=== PATIENT | female | born 1980 | race Two or more races ===

== ENCOUNTER → 2018-04-17 | Outpatient (REF) | payer OTHER ==
[2018-04-17 15:10] LABS: ERYTHROCYTE SEDIMENTATION RATE 10 mm/hr (0-20)
[2018-04-17 16:31] LABS: FREE T4 2.12 NG/DL (0.76-1.46); RHEUMATOID FACTOR QUANT < 10.0 IU/ML (<15.0); TOTAL PROTEIN 7.2 GM/DL (6.4-8.2)
[2018-04-17 17:08] LABS: FOLATE 12.5 NG/ML (>5.4)
[2018-04-18 15:03] LABS: ANTINUCLEAR ANTIBODIES DIRECT Negative (Negative)
[2018-04-19 12:01] LABS: ALBUMIN 3.93 GM/DL (3.29-5.55); ALBUMIN % 54.6 % (55.8-66.1); ALPHA-1-GLOBULIN % 4.7 % (2.9-4.9); ALPHA-1-GLOBULINS 0.34 GM/DL (0.17-0.41); ALPHA-2-GLOBULINS 0.75 GM/DL (0.42-0.99); ALPHA-2-GLOBULINS % 10.4 % (7.1-11.8); BETA-1-GLOBULINS 0.49 GM/DL (0.28-0.60); BETA-1-GLOBULINS % 6.8 % (4.7-7.2); BETA-2-GLOBULINS 0.43 GM/DL (0.19-0.55); GAMMA GLOBULIN % 17.5 % (11.1-18.8); GAMMA GLOBULINS 1.26 GM/DL (0.65-1.58)
[2018-04-24 10:27] LABS: DRVV SCREEN 38.4 SEC
[2018-04-24 11:00] LABS: PTT LUPUS TYPE ANTICOAG SCREEN 0.9 (0-1.2)
== END ==
LOC: M LABNEURO 14:16
DX: M54.2 Cervicalgia (principal); G43.909 Migraine, unspecified, not intractable, without status migrainosus

== ENCOUNTER → 2019-09-18 | Outpatient (REF) | payer OTHER ==
[2019-09-18 21:12] LABS: CHLAMYDIA DNA AMPLIFICATION NEGATIVE (NEGATIVE); GC DNA AMPLIFICATION NEGATIVE (NEGATIVE)
== END ==
LOC: M SFHCLERA 09:41
PROVIDERS: ATTEND Nurse Practitioner Family
DX: R30.0 Dysuria (principal)
CPT/HCPCS: 81002; 81025; 87661; G0463

== ENCOUNTER 2020-05-25 19:41 | Inpatient (IN) | payer OTHER ==
[~2020-05-25] VITALS: Ht 154.9 cm; Wt 73.0 kg
[2020-05-25 20:30] VITALS: BP 122/82
[2020-05-25] MEDS ORDERED: MAALOX 30 ML SUSP *UDC PO PRN (20:45)
[2020-05-25] MEDS ORDERED: ACETAMINOPHEN TAB 650MG DOSE (2X325MG) PO PRN (20:45)
[2020-05-25] MEDS ORDERED: MOM 30ML SUSPENSION UDC PO PRN (20:45)
[2020-05-25] MEDS ORDERED: NS 1,000 ML IV SCH (20:45)
[2020-05-25] MEDS ORDERED: PROP120C PO (21:25)
[2020-05-25 21:27] LABS: HEMOGLOBIN 13.8 g/dl (12.0-15.5); MEAN CORPUSCULAR HEMOGLOBIN 27.8 pg (27.0-33.0); MEAN CORPUSCULAR HGB CONC 30.7 g/dl (32.0-36.5); MEAN CORPUSCULAR VOLUME 90.5 fl (80.0-96.0); PLATELET COUNT, AUTOMATED 366 10^3/uL (150-450); RED BLOOD COUNT 4.97 10^6/uL (4.00-5.40); WHITE BLOOD COUNT 10.3 10^3/uL (4.0-10.0)
[2020-05-25 21:41] LABS: INR 0.99; PROTHROMBIN TIME 13.3 SECONDS (12.5-14.3)
[2020-05-25 21:42] LABS: PARTIAL THROMBOPLASTIN TIME 25.1 SECONDS (24.2-38.5)
[2020-05-25 22:02] LABS: ALBUMIN 3.5 GM/DL (3.2-5.2); ALT/SGPT 23 U/L (12-78); BILIRUBIN,TOTAL 0.4 MG/DL (0.2-1.0); BLOOD UREA NITROGEN 9 MG/DL (7-18); CALCIUM LEVEL 9.4 MG/DL (8.5-10.1); CARBON DIOXIDE LEVEL 27 MEQ/L (21-32); CHLORIDE LEVEL 107 MEQ/L (98-107); CREATININE FOR GFR 0.78 MG/DL (0.55-1.30); GLOMERULAR FILTRATION RATE > 60.0 (>58); GLUCOSE, FASTING 95 MG/DL (70-100); POTASSIUM SERUM 4.3 MEQ/L (3.5-5.1); SODIUM LEVEL 140 MEQ/L (136-145); TOTAL PROTEIN 7.4 GM/DL (6.4-8.2)
--- NOTE | 2020-05-25 23:27 | HPEPDOC ---
[facility] Medical History & Physical Date of Admission May 26, 2020 Date of Service: May 26, 2020 Primary Care Physician: TERRI LEBRON Attending Physician: JOANNE NOBLE MD History and Physical TIME OF SERVICE: 11:20 PM CHIEF COMPLAINT: Abdominal pain HISTORY OF PRESENT ILLNESS: This 40-year-old female developed sharp, sudden onset right lower quadrant abdominal pain on Monday. On Monday she went to see her primary care provider who palpated a mass in her abdomen and instructed her to go to the hospital. The patient denied losing weight. Denied having fevers, chills, or any other acute complaints except for mild nausea. She was unaware of this mass in her abdomen prior to her primary care provider pointing it out. At [facility]. She had an extensive workup including CBC, CMP, UA and CT of the abdomen and pelvis. Of note, her hemoglobin was 14, lipase was within normal limits, lactic acid was 2.5, Beta hCG was negative and the UA was positive for blood. CT scan of the abdomen showed a large pelvic mass that was 14.6 x 9 cm that may be a fibroid; the mass was obstructing the ureter and causing right-sided hydronephrosis. Dr. Rondon discussed these findings with Dr. Moody and Dr. Mon prior to the patient's transfer; they agreed to see the patient during her admission here. REVIEW OF SYSTEMS: 12 point review of systems negative except as listed in HPI PAST MEDICAL/ SURGICAL HISTORY: Asthma Migraines 5 para 3 SOCIAL HISTORY: She doesn't smoke, drink or use recreational drugs. Her is in the FAMILY HISTORY: Hypertension Breast cancer Dyslipidemia ALLERGIES: Please see below. HOME MEDICATIONS: Please see below. PHYSICAL EXAMINATION: VITAL SIGNS: Please see below. GEN: well-nourished / well developed/ NAD INTEGUMENT: not flushed/ not jaundice HEENT: lips acyanotic /mucus membranes moist and pink CVS: RRR/NMRG/ radial pulses intact / no lower extremity edema LUNGS: able to speak full sentences without stopping to take a breath / no coughing / lungs are clear to auscultation bilaterally on room air ABDOMEN: Contour (obese) / soft & very tender with light palpation of the right LQ MSK/EXTREMITIES: NCAT / range of motion intact in all 4 extremities / no scoliosis / no kyphosis NEURO: CN 2-12 are grossly intact / speech is not dysarthric PSYCH: alert and oriented to person place and time/ able to understand and follow all commands LABORATORY DATA: See below. IMAGING: see HPI MICROBIOLOGY: Please see below. ASSESSMENT: Ms. Bishop is a 40-year-old with a history of asthma and migraines who presented with complaints of right lower quadrant abdominal pain and was found to have a p alpable mass by her primary care provider who referred her to [place]; she was transferred here for urological and gynecological evaluation. PLAN: 1. Pelvic mass cause to be determined. Plan: Admit to medical floor/nothing by mouth with IV fluids/will call Dr. Moody and Dr. Mon in the morning 2. Possible UTI Plan: start Levofloxacin bc she will likely undergo instrumentation / f/u UCx 3. Asthma Plan: Albuterol when necessary 4. Migraines. Plan: Propranolol, and Tylenol DVT PROPHYLAXIS: SCDs Laboratory Data Labs 24H Laboratory Tests 2 05/25/20 20:44: Nucleated Red Blood Cells % (auto) 0.0, Prothrombin Time 13.3, Prothromb Time In ternational Ratio 0.99, Activated Partial Thromboplast Time 25.1 05/25/20 21:13: Anion Gap 6L, Glomerular Filtration Rate > 60.0, Calcium Level 9.4, Total Bilirubin 0.4, Aspartate Amino Transf (AST/SGOT) 17, Alanine Aminotransferase (ALT/SGPT) 23, Alkaline Phosphatase 104, Total Protein 7.4, Albumin 3.5, Albumin/Globulin Ratio 0.9L 05/25/20 21:35: Methicillin-Resist S.aureus DNA PCR NOT DETECTED CBC/BMP Laboratory Tests 05/25/20 20:44 05/25/20 21:13 Microbiology Microbiology 05/25/20 Respiratory Virus Panel (PCR) ([facility]) - Final, Complete Home Medications Scheduled Propranolol HCl (Propranolol HCl ER) 120 Mg Cap.sa.24h, 120 MG PO DAILY Allergies Coded Allergies: aspirin (Verified Allergy, Unknown, 05/25/20) PATIENT STATES SHE CAN TAKE OTHER NSAIDS. A-FIB/CHADSVASC A-FIB History Current/History of A-Fib/PAF?: No Current PO Anticoag Therapy: No JOANNE NOBLE MD May 25, 2020 23:27
[2020-05-26] MEDS ORDERED: LevoFLOXacin IV 750 MG in IV 1 EA IV SCH (05:00)
[2020-05-26 06:00] VITALS: BP 115/73
[2020-05-26 06:18] LABS: HEMATOCRIT 43.1 % (36.0-47.0); HEMOGLOBIN 13.2 g/dl (12.0-15.5); MEAN CORPUSCULAR HEMOGLOBIN 28.3 pg (27.0-33.0); MEAN CORPUSCULAR HGB CONC 30.6 g/dl (32.0-36.5); MEAN CORPUSCULAR VOLUME 92.5 fl (80.0-96.0); PLATELET COUNT, AUTOMATED 308 10^3/uL (150-450); RED BLOOD COUNT 4.66 10^6/uL (4.00-5.40); WHITE BLOOD COUNT 9.9 10^3/uL (4.0-10.0)
[2020-05-26 06:34] LABS: BLOOD UREA NITROGEN 11 MG/DL (7-18); CALCIUM LEVEL 8.7 MG/DL (8.5-10.1); CARBON DIOXIDE LEVEL 27 MEQ/L (21-32); CHLORIDE LEVEL 107 MEQ/L (98-107); CREATININE FOR GFR 0.73 MG/DL (0.55-1.30); GLOMERULAR FILTRATION RATE > 60.0 (>58); GLUCOSE, FASTING 82 MG/DL (70-100); POTASSIUM SERUM 4.1 MEQ/L (3.5-5.1); SODIUM LEVEL 141 MEQ/L (136-145)
[2020-05-26 08:32] LABS: LDH LACTATE DEHYDROGENASE 145 U/L (84-246)
--- NOTE | 2020-05-26 10:06 | IPNPDOC ---
Text Note Date of Service The patient was seen on 05/26/20. NOTE MANAGER SIMULATION Consultation Contacted by the Hospitalist service regarding Ms. Bishop. She presented to the [place] [facility] after being sent by her PCM who discovered a large abdominal/pelvic mass on exam. CT imaging in the [place] [facility] revealed a large pelvic mass of uncertain etiology. This appeared to cause a mass effect on her right ureter potentially leading to a degree of hydronephrosis. The decision was made to transfer Ms. Bishop to [facility] and directly admit her under the care of the hospitalist service with MANAGER SIMULATION and urology consulting. I went to evaluate Ms. Bishop this morning. Ms. Bishop is a 40 yo female who has been directly admitted to [facility] for workup of a large pelvic mass. She reports she was in her usual state of health until Monday when she developed RLQ abdominal pain that was significant. She went to her PCM on Monday to be evaluated. Her PCM palpated a large mass in her lower abdomen and was concerned about distention. Ms. Bishop was then sent to the [place] [facility]. Though Ms. Bishop has had pain since Monday, she denies any vomiting fevers/chills, SOB, chest pain, dysuria, or constipation. She has been tolerating a regular diet and voiding and stooling appropriately. OBHX: . 4 SVDs. One at 23 weeks (child ), two at 31 weeks, and one at 36 weeks. One SAB at 7 weeks. GYNHX: Regular, Q26-28 day menstrual cycles lasting ~7 days. No STD or abnormal pap history. Using 's vasectomy for contraception. PMHX: Asthma, Migraines, obesity PSHX: Denies Meds: Propanolol, PRN albuterol inhaler, PRN tylenol Allergies: ASA FamHx: Notable for breast cancer. No MANAGER SIMULATION or GI cancer in family Social: Denies tobacco, rec drugs, or etoh use. . active duty soldier. Exam: Vitals - VSS, afebrile, normotensive, nontachycardic General - laying in bed, pleasant and conversant, NAD CV - RRR Abdomen - Soft. Mild distention in lower quadrants. Mild tenderness to palpation in RLQ. No rebound tenderness, guarding, or rigidity. Non acute abdomen. Pelvic - Deferred Extremities - No edema Labs: CBC: 9.9>13.2/43.1<308 (this AM) BMP: 140/4.3--107/--9/0.78<95 ---> 141/4.1--107/--11/0.73<82 (this AM) AST/ALT: LDH: 145 Coags: 13.3 pt, 0.99 INR, 25.1 ptt CEA: <0.5 CA125: pending CA19-9: pending Inhibin A and B: pending Rads: Large, ~15cm pelvic mass on CT imaging at [place] [facility]. Uncertain origin but possibly large fibroid. Potentially compressing right ureter. A/P: Pelvic mass of uncertain etiology potentially causing mass effect on the right ureter. -Mass is of uncertain etiology. Benign leiomyoma, leiomyosarcoma, and various ovarian neoplasms are on the differential. Imaging from [place] suboptimal for complete characterization. -Non acute abdomen and no need for urgent surgical intervention. -I am concerned about the apparent quick growth of this mass. Mayi reports not even being aware of its presence until yesterday. CT imaging is suboptimal, and her reproductive organs cannot be clearly visualized. Leiomyoma appears mostly likely on imaging review. However with fast growth, leiomyosarcoma is a concern. -Plan for MRI pelvis today for further characterization of mass and possible origin. Would also consider a pelvic Ultrasound. Will also obtain additional tumor markers. -Will defer to urology regarding management of potential obstructed ureter and hydronephrosis. -If a malignant process is suspected after further imaging, or if the mass is truly obstructing the ureter, may need to consider gynecologic oncology consultation or transfer due to the complexity of the surgical case. -I discussed all of this with Ms. Bishop and she appears to understand. -Appreciate the consultation. Stacy Mon, Varun EM, I+O VS, Varun, I+O Laboratory Tests 05/25/20 20:44 05/25/20 21:13 05/26/20 05:34 Vital Signs Date Time Temp Pulse Resp B/P (MAP) Pulse Ox O2 Delivery O2 Flow Rate FiO2 05/26/20 06:00 98.7 85 16 115/73 (87) 100 Room Air I&O- Last 24 Hours up to 6 AM 05/26/20 06:00 Intake Total 720 ml Output Total 200 ml Balance 520 ml STACY MON DO May 26, 2020 10:06
[2020-05-26] MEDS: PROPRANOLOL 60 MG LA CAP PO SCH (10:10)
--- NOTE | 2020-05-26 11:46 | REP ---
INDICATION: pelvic mass of unknown origin COMPARISON: None. TECHNIQUE: Transabdominal pelvic ultrasound followed by transvaginal examination for better evaluation of the endometrium and adnexa with color Doppler evaluation of the ovaries. FINDINGS: Bladder is unremarkable and measures 6.0 x 2.8 x 9.2 cm. Heterogeneous retroflexed uterus measures approximately 9.1 x 4.6 x 4.7 cm and includes a 2.6 cm intramural fibroid and a large complex exophytic mass extending superiorly into the pelvis and lower abdomen measuring approximately 14.6 x 14.5 x 9.5 cm likely representing large degenerating exophytic fibroid. The endometrial complex measures 10.8 mm thickness. Bilateral ovaries are normal in appearance and vascularity without evidence for torsion. Right ovary measures 3.2 x 1.6 x 1.9 cm with 1.7 cm hemorrhagic cyst; R I = 0.57. Left ovary measures 2.4 x 1.6 x 1.6 cm; R I = 0.58. Small amount of right adnexal fluid is nonspecific and likely physiologic. IMPRESSION: 1. Large complex mass extending superiorly from the retroflexed uterus likely representing large exophytic fibroid. 2.6 cm right intramural fibroid also identified. <Electronically signed by Mckinley Rincon > 05/26/20 [id number]
[2020-05-26] MEDS ORDERED: PROHANCE 279.3MG/ML 15ML VIAL As Ordered ONE (12:11)
--- NOTE | 2020-05-26 13:33 | REPVR ---
PROCEDURE INFORMATION: Exam: MR Pelvis Without and With Contrast Exam date and time: 05/26/2020 12:44 PM Age: 40 years old Clinical indication: Pain; Other: Mass; Additional info: Pelvic mass of unknown origin TECHNIQUE: Imaging protocol: Magnetic resonance images of the pelvis without and with intravenous contrast. Contrast material: PROHANCE; Contrast volume: 14 ml; Contrast route: INTRAVENOUS (IV); COMPARISON: 1. CT abdomen pelvis with contrast (outside study) 05/25/2020. The images are available, but the report is not. 2. US pelvis 05/26/2020. FINDINGS: Intraperitoneal space: No free fluid. Bladder: Urinary bladder is compressed by the large fibroid. It is otherwise unremarkable without wall thickening, mass or stone. Uterus: The uterus is retroflexed and 9.1 cm in length. A heterogeneous exophytic fibroid arises from the anterior wall of the lower uterine segment and occupies much of the pelvis and lower abdomen. It is 14.6 x 14.1 x 9.9 cm. Its volume is approximately 1300 mL. It is hypointense isodense with muscle on the T1 weighted images and heterogeneously hyperintense on T2 weighted images. It enhances markedly and heterogeneously. An intramural fibroid at the anterior wall of the uterine body is 1.7 x 1.6 x 1.3 cm (series 301 frame 25 and series 601 frame 25). The endometrium is 9 mm in thickness. Ovaries: Both ovaries are normal in size. A thick-walled cystic lesion with peripheral vascularity in the right ovary is 1.7 x 1.4 x 1.0 cm (series 901 frame 20 and series 801 frame 23). It is consistent with a corpus luteum. It was described as a hemorrhagic cyst in the ultrasound report. Bones/joints: Unremarkable. No fracture. Lumbar discs between L2 and S1 are normal. Soft tissues: Unremarkable. IMPRESSION: 1. The uterus is retroflexed and 9.1 cm in length. 2. A large exophytic fibroid arises from the anterior wall of the lower uterine segment is 14.6 x 14.1 x 9.9 cm. Its estimated volume is 1300 mL. 3. An intramural fibroid at the anterior wall of the uterine body is 1.7 x 1.6 x 1.3 cm. 4. Both ovaries are normal in size. A corpus luteum in the right ovary is 1.7 x 1.4 x 1.0 cm. Electronically signed by: Igor Petit On 05/26/2020 13:33:38 PM
[2020-05-26 14:00] VITALS: BP_SYST 109; BP_DIAS 60; BP_DIAS 68
--- NOTE | 2020-05-26 16:20 | IPNPDOC ---
Text Note Date of Service The patient was seen on 05/26/20. NOTE Subjective: -No acute events overnight -Pain much better controlled -Seen by OB, given diet, no emergent surgery for now Objective: PHYSICAL EXAMINATION: VITAL SIGNS: HDS, afebrile, on room air. Please see below. GEN: well-nourished / well developed/ NAD SKIN: not flushed/ not jaundice HEENT: NCAT, MMM CVS: RRR/NMRG/ radial pulses intact / no lower extremity edema LUNGS: CTAB ABDOMEN: Obese, TTP especially in RLQ, normoactive bowel sounds EXTREMITIES: normal range of motion intact in all 4 extremities, WWP, no edema NEURO: CN 2-12 are grossly intact, nonfocal exam PSYCH: alert and oriented to person place and time LABORATORY DATA: See below. IMAGING: Done at [facility] - CT scan of the abdomen showed a large pelvic mass that was 14.6 x 9 cm that may be a fibroid; the mass was obstructing the ureter and causing right-sided hydronephrosis. Dr. Rondon discussed these findings with Dr. Moody and Dr. Mon prior to the patient's transfer; they agreed to see the patient during her admission here. MICROBIOLOGY: Please see below. ASSESSMENT: Ms. Bishop is a 40-year-old with a history of asthma and migraines who presented with complaints of right lower quadrant abdominal pain and was found to have a palpable mass by her primary care provider who referred her to [facility]; she was transferred here for urological and gynecological evaluation. PLAN: 1. Pelvic mass cause to be determined. -follow up gynecology and urology recs, has US and studies ordered this morning 2. Possible UTI -f/u UCx -switch to empiric cipro for better urological coverage 3. Asthma -Albuterol when necessary 4. Migraines. -Propranolol, and PRN Tylenol DVT PROPHYLAXIS: SCDs VS,Fishbone, I+O VS, Fishbone, I+O Laboratory Tests 05/25/20 20:44 05/25/20 21:13 05/26/20 05:34 Vital Signs Date Time Temp Pulse Resp B/P (MAP) Pulse Ox O2 Delivery O2 Flow Rate FiO2 05/26/20 06:00 98.7 85 16 115/73 (87) 100 Room Air I&O- Last 24 Hours up to 6 AM 05/26/20 06:00 Intake Total 720 ml Output Total 200 ml Balance 520 ml AI SALINAS MD May 26, 2020 09:18
--- NOTE | 2020-05-26 18:04 | SMCUROLCON ---
Urology Consultation General Date of Consultation 05/26/20 Reason For Consultation This patient is seen for Pelvic Mass. History of Present Illness The patient is a [40]-year-old [woman] with a past medical history for [right hydronephrosis and a pelvic mass]. She was transferred for further evaluation and management when her CT scan for abdominal pain revealed a large pelvic mass of unclear etiology and the hydronephrosis. She denies any pain prior to this past weekend and has no h/o flank pain, clinical UTI or hematuria. Medications Current Medications Current Medications Medications (Trade) Dose Ordered Sig/Fabienne Route PRN Reason Start Time Stop Time Status Last Admin Dose Admin Acetaminophen (Tylenol Tab) 650 mg Q4H PRN PO PAIN OR FEVER 05/25/20 20:45 Al Hydrox/Mg Hydrox/Simethicone (Mylanta) 30 ml DAILY PRN PO DYSPEPSIA 05/25/20 20:45 Ciprofloxacin (Cipro) 500 mg BID@06,18 PO 05/26/20 18:00 Home Med (Med Rec Complete!) ASDIRECTED XX 05/25/20 21:30 05/25/20 21:27 DC Levofloxacin 750 mg/IV Miscellaneous Supplies 150 ml @ 100 mls/hr Q24H IV 05/26/20 05:00 05/26/20 09:19 DC 05/26/20 05:45 Magnesium Hydroxide (Milk Of Magnesia) 30 ml DAILY PRN PO CONSTIPATION 05/25/20 20:45 Propranolol HCl (Inderal La) 120 mg DAILY PO 05/26/20 09:00 05/26/20 10:10 Sodium Chloride 1,000 ml @ 120 mls/hr Q8H20M IV 05/25/20 20:45 05/26/20 08:05 DC 05/25/20 21:52 Allergies Allergies: Coded Allergies: aspirin (Verified Allergy, Unknown, 05/25/20) PATIENT STATES SHE CAN TAKE OTHER NSAIDS. Physical Examination Abdomen Exam: Normal Bowel Sounds, Mass (She has a large mass in her right pelvis which is mildly tender; she has no CVAT) Vital Signs/I&O Vital Signs Date Time Temp Pulse Resp B/P (MAP) Pulse Ox O2 Delivery O2 Flow Rate FiO2 05/26/20 14:00 98.9 85 18 109/68 (82) 99 Room Air I&O- Last 24 Hours up to 6 AM 05/26/20 06:00 Intake Total 720 ml Output Total 200 ml Balance 520 ml Laboratory Data 24H Labs Laboratory Tests 2 05/25/20 20:44: Nucleated Red Blood Cells % (auto) 0.0, Prothrombin Time 13.3, Prothromb Time International Ratio 0.99, Activated Partial Thromboplast Time 25.1 05/25/20 21:13: Anion Gap 6L, Glomerular Filtration Rate > 60.0, Calcium Level 9.4, Total Bilirubin 0.4, Aspartate Amino Transf (AST/SGOT) 17, Alanine Aminotransferase (ALT/SGPT) 23, Alkaline Phosphatase 104, Total Protein 7.4, Albumin 3.5, Albumin/Globulin Ratio 0.9L 05/25/20 21:35: Methicillin-Resist S.aureus DNA PCR NOT DETECTED 05/26/20 00:14: Urine Color YELLOW, Urine Appearance HAZY, Urine pH 6.0, Urine Specific Force 1.028, Urine Protein NEGATIVE, Urine Glucose (UA) NEGATIVE, Urine Ketones 1+H, Urine Blood 1+H, Urine Nitrite NEGATIVE, Urine Bilirubin NEGATIVE, Urine Urobilinogen 0.2, Urine Leukocyte Esterase 1+H, Urine WBC (Auto) 20H, Urine RBC (Auto) 1, Urine Hyaline Casts (Auto) 0, Urine Bacteria (Auto) NEGATIVE, Urine Squamous Epithelial Cells 10, Urine Mucus (Auto) SMALL, Urine Sperm (Auto) 05/26/20 05:34: Nucleated Red Blood Cells % (auto) 0.0, Anion Gap 7L, Glomerular Filtration Rate > 60.0, Lactic Acid Level 2.0, Calcium Level 8.7, Lactate Dehydrogenase 145, C arcinoembryonic Antigen < 0.5 05/26/20 10:13: CA 19-9 Antigen 13.2, CA 125 Antigen 51.7H CBC/BMP Laboratory Tests 05/25/20 20:44 05/25/20 21:13 05/26/20 05:34 Microbiology Microbiology 05/26/20 Urine Culture, Received Pending 05/25/20 Respiratory Virus Panel (PCR) ([facility]) - Final, Complete Assessment Her MRI and pelvic US suggest a benign process but its fast growth is concerning and I agree with Dr. Mon in checking markers. From a urologic perspective,she needs a ureteral stent placed at the time of her definitive procedure to aide in identification of the ureter and allow post operative resolution of her hydronephrosis. This can be arranged on a scheduled basis when it is convenient for all parties. Plan I am okay with her discharge home and outpatient management of her hydronephrosis when her work up is complete. Thanks for consult! JOSE CASTILLO MD May 26, 2020 18:04
[2020-05-26] MEDS: CIPROFLOXACIN 500MG TABLET PO SCH (18:45)
[2020-05-26 19:48] VITALS: BP 110/59
[2020-05-27] MEDS ORDERED: ARNU1INH PO (04:13)
[2020-05-27] MEDS: CIPROFLOXACIN 500MG TABLET PO SCH (05:41)
[2020-05-27 06:00] VITALS: BP 109/62
[2020-05-27] MEDS ORDERED: FLUTICASONE HFA 110 MCG 12 GM INHALER (FLOVENT) INH SCH (08:00)
[2020-05-27 08:29] VITALS: BP 116/70
[2020-05-27] MEDS: PROPRANOLOL 60 MG LA CAP PO SCH (08:29)
[2020-05-27] MEDS ORDERED: IBUPROFEN 400 MG TAB PO ONE (10:30)
--- NOTE | 2020-05-27 19:42 | DS.PDOC ---
Discharge Summary General Date of Admission May 25, 2020 at 20:29 Date of Discharge 05/27/2020 Attending Physician: AI SALINAS MD Discharge Summary PROCEDURES PERFORMED DURING STAY: None ADMITTING DIAGNOSES: 1. Pelvic mass DISCHARGE DIAGNOSES: 1. Pelvic mass with ongoing evaluation that will continue in the outpatient setting 2. Hydronephrosis 2/2 pelvic mass with normal renal function 3. History of migraines COMPLICATIONS/CHIEF COMPLAINT: Pelvic Mass. HISTORY OF PRESENT ILLNESS: 40 yo W who was directed by per PCP to go the hospital after they felt a pelvic mass on examination after she presented with abdominal pain. At [place] she had a CT that revealed a large, ~15cm pelvic mass that was of uncertain origin but possibly a large fibroid and potentially compressing right ureter with some hydronephrosis and was transferred to [facility]. HOSPITAL COURSE: She had no pain on arrival or during her hospitalization. She was evaluated by industrial nurse that was concerned about benign leiomyoma, leiomyosarcoma, and various ovarian neoplasms with concern about the apparent quick growth of this mass, they therefore ordered tumor markers that are still pending and a dedicated MRI pelvis that showed a large exophytic fibroid from the anterior wall of the lower uterine segment is 14.6 x 14.1 x 9.9 cm. Its estimated volume is 1300 mL. An intramural fibroid at the anterior wall of the uterine body is 1.7 x 1.6 x 1.3 cm. Both ovaries normal in size. A corpus luteum in the right ovary is 1.7 x 1.4 x 1.0 cm. While a pelvic US showed a large complex mass extending superiorly from the retroflexed uterus likely representing large exophytic fibroid and a 2.6 cm right intramural fibroid also identified. Her renal function was at baseline. She was seen by urology as well that recommended no intervention at this time. She will follow up with gynecology on Jun 10. DISCHARGE MEDICATIONS: Please see below. ALLERGIES: Please see below. PHYSICAL EXAMINATION ON DISCHARGE: VITAL SIGNS: Please see below. GEN: well-nourished / well developed/ NAD SKIN: not flushed/ not jaundice HEENT: NCAT, MMM CVS: RRR/NMRG/ radial pulses intact / no lower extremity edema LUNGS: CTAB ABDOMEN: Obese, TTP especially in RLQ, normoactive bowel sounds EXTREMITIES: normal range of motion intact in all 4 extremities, WWP, no edema NEURO: CN 2-12 are grossly intact, nonfocal exam PSYCH: alert and oriented to person place and time LABORATORY DATA: Please see below. IMAGING: MRI pelvis: Intraperitoneal space: No free fluid. Bladder: Urinary bladder is compressed by the large fibroid. It is otherwise unremarkable without wall thickening, mass or stone. Uterus: The uterus is retroflexed and 9.1 cm in length. A heterogeneous exophytic fibroid arises from the anterior wall of the lower uterine segment and occupies much of the pelvis and lower abdomen. It is 14.6 x 14.1 x 9.9 cm. Its volume is approximately 1300 mL. It is hypointense isodense with muscle on the T1 weighted images and heterogeneously hyperintense on T2 weighted images. It enhances markedly and heterogeneously. An intramural fibroid at the anterior wall of the uterine body is 1.7 x 1.6 x 1.3 cm (series 301 frame 25 and series 601 frame 25). The endometrium is 9 mm in thickness. Ovaries: Both ovaries are normal in size. A thick-walled cystic lesion with peripheral vascularity in the right ovary is 1.7 x 1.4 x 1.0 cm (series 901 frame 20 and series 801 frame 23). It is consistent with a corpus luteum. It was described as a hemorrhagic cyst in the ultrasound report. Bones/joints: Unremarkable. No fracture. Lumbar discs between L2 and S1 are normal. Soft tissues: Unremarkable. IMPRESSION: 1. The uterus is retroflexed and 9.1 cm in length. 2. A large exophytic fibroid arises from the anterior wall of the lower uterine segment is 14.6 x 14.1 x 9.9 cm. Its estimated volume is 1300 mL. 3. An intramural fibroid at the anterior wall of the uterine body is 1.7 x 1.6 x 1.3 cm. 4. Both ovaries are normal in size. A corpus luteum in the right ovary is 1.7 x 1.4 x 1.0 cm. Pelvic US: Bladder is unremarkable and measures 6.0 x 2.8 x 9.2 cm. Heterogeneous retroflexed uterus measures approximately 9.1 x 4.6 x 4.7 cm and includes a 2.6 cm intramural fibroid and a large complex exophytic mass extending superiorly into the pelvis and lower abdomen measuring approximately 14.6 x 14.5 x 9.5 cm likely representing large degenerating exophytic fibroid. The endometrial complex measures 10.8 mm thickness. Bilateral ovaries are normal in appearance and vascularity without evidence for torsion. Right ovary measures 3.2 x 1.6 x 1.9 cm with 1.7 cm hemorrhagic cyst; R I = 0.57. Left ovary measures 2.4 x 1.6 x 1.6 cm; R I = 0.58. Small amount of right adnexal fluid is nonspecific and likely physiologic. IMPRESSION: 1. Large complex mass extending superiorly from the retroflexed uterus likely representing large exophytic fibroid. 2.6 cm right intramural fibroid also identified. PROGNOSIS: Good ACTIVITY: As tolerated DIET: Regular DISCHARGE PLAN: Home with industrial nurse follow up on Jun 10. DISPOSITION: Home, Self-Care. DISCHARGE INSTRUCTIONS: 1. Home with industrial nurse follow up on Jun 10. ITEMS TO FOLLOWUP ON ON OUTPATIENT: 1. industrial nurse follow up on Jun 10. DISCHARGE CONDITION: Stable TIME SPENT ON DISCHARGE: 49 minutes. Vital Signs/I&Os Vital Signs Date Time Temp Pulse Resp B/P (MAP) Pulse Ox O2 Delivery O2 Flow Rate FiO2 05/27/20 08:29 85 116/70 05/27/20 06:00 98.0 16 98 Room Air I&O- Last 24 Hours up to 6 AM 05/27/20 06:00 Intake Total 740 ml Output Total 1125 ml Balance -385 ml Microbiology Microbiology 05/26/20 Urine Culture - Final, Complete 05/25/20 Respiratory Virus Panel (PCR) ([facility]) - Final, Complete Discharge Medications Scheduled Fluticasone Furoate (Arnuity Ellipta) 100 Mcg Blst.w.dev, 1 PUFF PO DAILY Propranolol HCl (Propranolol HCl ER) 120 Mg Cap.sa.24h, 120 MG PO DAILY, (Reported) Allergies Coded Allergies: aspirin (Verified Allergy, Unknown, 05/25/20) PATIENT STATES SHE CAN TAKE OTHER NSAIDS. AI SALINAS MD May 27, 2020 19:42
[2020-05-29 13:06] LABS: INHIBIN A ULTRASENSITIVE 19.1 pg/mL (.); INHIBIN B 50.5 pg/mL (.)
== END 2020-05-27 12:32 | disposition home or self-care (01) | DRG 392 ==
LOC: M MSPAV 20:29
PROVIDERS: ADMIT Internal Medicine; ATTEND Internal Medicine
DX: R19.03 Right lower quadrant abdominal swelling, mass and lump (principal); N39.0 Urinary tract infection, site not specified; N13.30 Unspecified hydronephrosis; J45.909 Unspecified asthma, uncomplicated; G43.909 Migraine, unspecified, not intractable, without status migrainosus; E66.9 Obesity, unspecified; D25.1 Intramural leiomyoma of uterus; N83.11 Corpus luteum cyst of right ovary; Z79.899 Other long term (current) drug therapy; Z20.828 Contact with and (suspected) exposure to other viral communicable diseases; Z88.6 Allergy status to analgesic agent; Z68.30 Body mass index [BMI] 30.0-30.9, adult

== ENCOUNTER → 2021-10-01 | Outpatient (REF) | payer OTHER ==
[~2021-10-01] MED LIST: ARNU1INH PO; PROP120C PO
== END ==
LOC: M WUC 15:37
PROVIDERS: ATTEND Internal Medicine
DX: R30.0 Dysuria (principal)

== ENCOUNTER → 2021-12-03 | Outpatient (REF) | payer OTHER ==
[2021-12-03 18:46] LABS: APPEARANCE, URINE CLEAR (CLEAR); BACTERIA, URINE AUTO NEGATIVE (NEGATIVE); BILIRUBIN, URINE AUTO NEGATIVE (NEGATIVE); BLOOD, URINE BLOOD NEGATIVE (NEGATIVE); COLOR, URINE YELLOW (YELLOW); GLUCOSE, URINE (UA) AUTO NEGATIVE (NEGATIVE); KETONE, URINE AUTO NEGATIVE (NEGATIVE); LEUKOCYTE ESTERASE, URINE AUTO NEGATIVE (NEGATIVE); MUCUS, URINE SMALL (NEGATIVE); NITRITE, URINE AUTO NEGATIVE (NEGATIVE); PROTEIN, URINE AUTO NEGATIVE (NEGATIVE); RBC, URINE AUTO 0 /HPF (0-3); SPECIFIC GRAVITY URINE AUTO 1.019 (1.002-1.035); SQUAMOUS EPITHELIAL CELL UR AU 2 /HPF (0-6); UROBILINOGEN, URINE AUTO 0.2 mg/dL (0.0-2.0); WBC, URINE AUTO 0 /HPF (0-3)
== END ==
LOC: M SMT 18:00
PROVIDERS: ATTEND Physician Assistant
DX: R10.31 Right lower quadrant pain (principal)

== ENCOUNTER → 2021-12-14 | Outpatient (CLI) | payer OTHER | LOC: M WHC 15:37 | PROVIDERS: ATTEND Nurse Practitioner Primary Care | DX: Z12.31 Encounter for screening mammogram for malignant neoplasm of breast (principal); Z80.3 Family history of malignant neoplasm of breast ==

== ENCOUNTER → 2021-12-17 | Outpatient (CLI) | payer OTHER | LOC: M RAD 11:17 | PROVIDERS: ATTEND Physician Assistant | DX: R10.31 Right lower quadrant pain (principal) ==

== ENCOUNTER → 2022-02-11 | Outpatient (REF) | payer OTHER ==
[2022-02-11 12:16] LABS: APPEARANCE, URINE MANUAL CLEAR (CLEAR); COLOR, URINE MANUAL DK YELLOW (YELLOW)
[2022-02-11 12:17] LABS: BILIRUBIN, URINE MANUAL NEGATIVE (NEGATIVE); GLUCOSE, URINE (UA) MANUAL NEGATIVE (NEGATIVE); KETONE, URINE MANUAL NEGATIVE (NEGATIVE); PROTEIN, URINE MANUAL NEGATIVE (NEGATIVE); SPECIFIC GRAVITY,URINE MANUAL 1.025 (1.002-1.035); UROBILINOGEN, URINE MANUAL NORMAL (NORMAL)
[2022-02-11 12:18] LABS: BLOOD URINE MANUAL NEGATIVE (NEGATIVE); LEUKOCYTE ESTERASE, URINE MAN NEGATIVE (NEGATIVE); NITRITE, URINE MANUAL NEGATIVE (NEGATIVE)
== END ==
LOC: M LAB REF 12:00
PROVIDERS: ATTEND Physician Assistant Medical
DX: N39.0 Urinary tract infection, site not specified (principal)